=== PATIENT | female | born 2000 | race Two or more races ===

== ENCOUNTER 2023-09-28 15:27 | Inpatient (IN) ==
[2023-09-28] MEDS ORDERED: REGLAN INJ 10 MG VIAL IVP PRN (15:38)
[2023-09-28] MEDS ORDERED: NUBAIN INJ 20 MG AMP IVP PRN (15:38)
[2023-09-28] MEDS ORDERED: ZOFRAN INJ 4 MG VIAL IVP PRN (15:38)
[2023-09-28] MEDS: LR 1,000 ML IV 1,000 ML IV SCH (16:00)
[2023-09-28] MEDS: OXYTOCIN 20 UNIT/1,000 ML-NS 20 UNIT/1,000 ML PLAST..BAG IV PRN (16:24)
[2023-09-28 16:40] LABS: BLOOD UREA NITROGEN 7 mg/dL (7-18); CARBON DIOXIDE 20.7 mmol/L (21-32); CHLORIDE 103 mmol/L (98-107); CREATININE 0.57 mg/dL (0.55-1.02); GLUCOSE 73 mg/dL (65-99); POTASSIUM 3.9 mmol/L (3.5-5.1); SODIUM 135 mmol/L (136-145); eGFR NON BLACK RACES > 60 (>60)
[2023-09-28 16:48] LABS: BASOPHILS % (AUTO) 0.3 % (0.2-1.0); EOSINOPHILS # (AUTO) 0.1 x10^3/uL (0.0-0.2); EOSINOPHILS % (AUTO) 0.6 % (0.9-2.9); HEMATOCRIT 38.8 % (36.0-47.0); HEMOGLOBIN 12.9 g/dL (12.0-16.0); LYMPHOCYTES # (AUTO) 1.5 X10^3/uL (1.3-2.9); LYMPHOCYTES % (AUTO) 15.5 % (21.0-51.0); MEAN CORPUSCULAR HEMOGLOBIN 27.5 pg (27.0-34.0); MEAN CORPUSCULAR HGB CONC 33.2 g/dL (33.0-35.0); MEAN CORPUSCULAR VOLUME 82.7 fL (80.0-100.0); MEAN PLATELET VOLUME 9.7 fL (7.4-11.0); MONOCYTES # (AUTO) 0.6 x10^3/uL (0.3-0.8); MONOCYTES % (AUTO) 6.4 % (0.0-13.0); NEUTROPHILS # (AUTO) 7.6 x10^3/uL (2.2-4.8); NEUTROPHILS % (AUTO) 77.2 % (42.0-75.0); PLATELET COUNT 264 X10^3/uL (150.0-450.0); RED BLOOD COUNT 4.69 X10^6/uL (3.5-5.4); RED CELL DISTRIBUTION WIDTH 15.7 % (11.6-16.5); WHITE BLOOD COUNT 9.8 X10^3/uL (3.6-10.0)
[2023-09-28 16:57] LABS: BILIRUBIN,URINE NEGATIVE (NEGATIVE); BLOOD/HEMOGLOBIN,URINE 4+ (NEGATIVE); GLUCOSE, URINE NEGATIVE (NEGATIVE); KETONES,URINE 1+ (NEGATIVE); LEUKOCYTE ESTERASE ,URINE NEGATIVE (NEGATIVE); NITRITES,URINE NEGATIVE (NEGATIVE); PROTEIN,URINE 1+ (NEGATIVE); UROBILINOGEN,URINE NORMAL (NORMAL)
[2023-09-28] MEDS: LR 1,000 ML IV 1,000 ML IV ONE (17:15)
[2023-09-28 17:26] LABS: APPEARANCE,URINE CLEAR (CLEAR); COLOR,URINE YELLOW (YELLOW)
[2023-09-28 17:27] LABS: BACTERIA,URINE TRACE /HPF (NEGATIVE); RBC,URINE 0-2 /HPF (0-3); SQUAMOUS EPITHELIAL CELL,UR MODERATE /HPF (NEGATIVE)
[2023-09-29] MEDS: LR 1,000 ML IV 1,000 ML IV ONE (00:01)
[2023-09-29] MEDS: PITOCIN ONE (03:10)
[2023-09-29] MEDS ORDERED: MOTRIN TAB 800 MG PO PRN (03:36)
[2023-09-29] MEDS ORDERED: AMBIEN PO PRN (04:15)
[2023-09-29] MEDS ORDERED: DERMOPLAST PAIN RELIEF SPRAY TOP PRN (04:15)
[2023-09-29] MEDS ORDERED: MILK OF MAGNESIA PO PRN (04:15)
[2023-09-29] MEDS: PITOCIN IVP ONE (04:32)
[2023-09-29] MEDS: OXYTOCIN 20 UNIT/1,000 ML-NS 20 UNIT/1,000 ML PLAST..BAG IV SCH (04:32)
[2023-09-29 05:35] LABS: HEMOGLOBIN 10.4 g/dL (12.0-16.0)
[2023-09-29] MEDS: PRENATAL PLUS PO SCH (08:34)
[2023-09-29 13:00] VITALS: RESP 18
[2023-09-30] MEDS: ADACEL or BOOSTRIX TDaP VACCINE IM ONE (07:39)
[2023-09-30 08:34] VITALS: BP 116/56; PULSE 109; TEMP 98; O2SAT 98
== END 2023-09-30 11:30 | disposition home or self-care (01) | DRG 807 ==
LOC: LD 15:27 → MED/SURG 09-29 04:16
PROVIDERS: ADMIT Obstetrics & Gynecology Obstetrics; ATTEND Obstetrics & Gynecology Obstetrics
DX: Z37.0 Single live birth; Z3A.40 40 weeks gestation of pregnancy; O70.0 First degree perineal laceration during delivery; O26.893 Other specified pregnancy related conditions, third trimester